=== PATIENT | female | born 1950 | race Caucasian/White ===

== ENCOUNTER 2020-02-08 15:55 | Observation (INO) ==
[2020-02-08 16:45] LABS: Basophils % 0.4 %; Eosinophils # 0.2 K/mcL (0.0-0.6); Eosinophils % 1.8 %; Hematocrit 43.9 % (35.3-44.9); Immature Granulocytes % 0.3 % (0-4); Lymphocytes # 2.7 K/mcL (0.6-4.6); Lymphocytes % 28.8 %; Mean Corpuscular HGB Conc 34.2 g/dL (31.6-35.5); Mean Corpuscular Volume 93.6 fL (83.0-100.0); Mean Platelet Volume 9.6 fL (9.4-12.4); Monocytes # 0.7 K/mcL (0.0-1.3); Monocytes % 7.2 %; Neutrophils # 5.8 K/mcL (1.6-8.9); Platelet Count 282 K/mcL (140-400); Red Blood Count 4.69 M/mcL (3.82-4.97); Red Cell Distribution Width 13.2 % (11.5-14.5); Segmented Neutrophils % 61.5 %; White Blood Count 9.4 K/mcL (4.3-11.1)
[2020-02-08 16:51] LABS: INR 1.1; Prothrombin Time 12.6 Seconds (9.4-12.1)
[2020-02-08] MEDS: DilTIAZem 50 MG/50 ML IV.SOLN IVC SCH ×2 (17:08→17:22)
[2020-02-08 17:10] LABS: Alanine Aminotransferase 20 Units/L (7-52); Albumin 4.2 g/dL (3.5-5.7); Albumin/Globulin Ratio 1.3 (1.1-2.2); Alkaline Phosphatase 89 Units/L (34-104); Aspartate Amino Transferase 16 Units/L (13-39); BUN/Creatinine Ratio 21 (6-26); Bilirubin,Indirect 0.4 mg/dL (0.0-1.0); Bilirubin,Total 0.4 mg/dL (0.3-1.0); Blood Urea Nitrogen 14 mg/dL (8-23); Calcium 9.8 mg/dL (8.6-10.3); Carbon Dioxide 21 mEq/L (23-29); Chloride 108 mEq/L (98-107); Globulin 3.3 g/dL (2.4-3.5); Glucose 154 mg/dL (70-105); Magnesium 2.1 mg/dL (1.6-2.6); Osmolality,Calculated 292 (280-300); Potassium 3.6 mEq/L (3.5-5.1); Sodium 139 mEq/L (136-145); Total Protein 7.5 g/dL (6.4-8.9); Troponin I < 0.03 ng/mL (< 0.04); eGFR For African Americans > 60 (> 60); eGFR For Non-African Americans > 60 (> 60)
[2020-02-08 17:16] LABS: Thyroid Stimulating Hormone 0.781 mcIU/mL (0.340-5.600)
[2020-02-08] MEDS ORDERED: Metoprolol XL (24 HR) Succ 25 MG TAB.ER.24H PO SCH (17:45)
[2020-02-08] MEDS ORDERED: Naloxone 0.4 MG/ML INJ IVP PRN (17:53)
[2020-02-08] MEDS ORDERED: Perflutren Lipid Microsphere 1.3 ML in 0.9 % Sodium Chloride 8.7 ML IVP PRN (17:57)
[2020-02-08] MEDS ORDERED: Furosemide 20 MG/2 ML VIAL IVP ONE (18:05)
[2020-02-08] MEDS ORDERED: Metoprolol XL (24 HR) Succ 25 MG TAB.ER.24H PO ONE (19:00)
[2020-02-08] MEDS: (Mirabegron [Myrbetriq] 50 MG) PO SCH (20:01)
[2020-02-08] MEDS: *HR* Heparin 5,000 UNIT/ML VIAL SQ SCH (20:02)
[2020-02-08] MEDS: Diclofenac Sodium (DR) 50 MG TABLET.DR PO SCH (20:02)
[2020-02-09] MEDS: *HR* Heparin 5,000 UNIT/ML VIAL SQ SCH ×2 (05:11→17:05)
[2020-02-09 05:16] LABS: BUN/Creatinine Ratio 26 (6-26); Blood Urea Nitrogen 19 mg/dL (8-23); Calcium 9.2 mg/dL (8.6-10.3); Carbon Dioxide 24 mEq/L (23-29); Chloride 106 mEq/L (98-107); Glucose 106 mg/dL (70-105); Magnesium 2.2 mg/dL (1.6-2.6); Osmolality,Calculated 293 (280-300); Phosphorous 4.4 mg/dL (2.7-4.5); Potassium 3.6 mEq/L (3.5-5.1); Sodium 140 mEq/L (136-145); eGFR For African Americans > 60 (> 60); eGFR For Non-African Americans > 60 (> 60)
[2020-02-09] MEDS ORDERED: Metoprolol XL (24 HR) Succ 25 MG TAB.ER.24H PO SCH ×3 (09:00→17:45)
[2020-02-09] MEDS ORDERED: Multivit/Ca/Min/Fe/FA 1 TAB TABLET PO SCH (09:00)
[2020-02-09] MEDS ORDERED: Loratadine 10 MG TABLET PO SCH (09:00)
[2020-02-09] MEDS ORDERED: Niacin (24 HR) 500 MG TAB.ER.24H PO SCH (09:00)
[2020-02-09] MEDS ORDERED: Aspirin Enteric Coated 81 MG Tablet PO SCH (09:00)
[2020-02-09] MEDS: (Mirabegron [Myrbetriq] 50 MG) PO SCH (09:32)
[2020-02-09] MEDS: Diclofenac Sodium (DR) 50 MG TABLET.DR PO SCH ×2 (09:42→17:05)
[2020-02-09 15:51] VITALS: BP 122/72
== END 2020-02-09 19:26 | disposition home or self-care (01) ==
LOC: EMEROOARM 15:55 → 3NENU 15:55
PROVIDERS: ADMIT Internal Medicine; ATTEND Internal Medicine